=== PATIENT | female | born 2000 | race Hispanic/Latino ===

== ENCOUNTER 2023-09-25 01:55 | Emergency (ER) | payer MEDICAID ==
[~2023-09-25] VITALS: Ht 154.9 cm; Wt 88.5 kg
[~2023-09-25 01:55] MED LIST: PREN1TAB80 PO
[2023-09-25 01:57] VITALS: BP 121/81; PULSE 86; RESP 18
[2023-09-25] MEDS: OCTYL 2-CYANOACRYLATE 1 EACH TP SCH (02:20)
[2023-09-25] MEDS: OCTYL 2-CYANOACRYLATE 1 EACH TP ONE (02:20)
[2023-09-25] MEDS: KETOROLAC 15MG/ML VIAL (15MG/ML) IM STA (02:23)
[2023-09-25] MEDS: DIPH,PERTUSS(ACELL),TET VAC/PF 0.5 ML VIAL IM ONE (02:24)
== END 2023-09-25 02:42 | disposition home or self-care (01) ==
LOC: EDH 01:55
DX: S61.511A Laceration without foreign body of right wrist, initial encounter (principal); W22.8XXA Striking against or struck by other objects, initial encounter; Y93.89 Activity, other specified; Y92.89 Other specified places as the place of occurrence of the external cause; Y99.8 Other external cause status
CPT/HCPCS: 99282